=== PATIENT | male | born 1970 ===

== ENCOUNTER 2016-11-03 14:25 | Emergency (ER) | payer SELFPAY ==
[2016-11-03 14:32] VITALS: BMI 27.2
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
[2016-11-03 15:21] VITALS: TEMP 98.5
[2016-11-03 19:35] VITALS: BP 127/90; PULSE 79; RESP 17; O2SAT 97
== END 2016-11-03 19:35 | disposition home or self-care (01) ==
LOC: ED 14:25 → MERGE 14:25 → ED 19:35
DX: F10.10 Alcohol abuse, uncomplicated (principal); Y90.9 Presence of alcohol in blood, level not specified

== ENCOUNTER 2016-12-17 07:33 | Emergency (ER) | payer SELFPAY ==
[2016-12-17 07:43] VITALS: BMI 33.4
[2016-12-17 07:45] VITALS: RESP 18; TEMP 98.3
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
[2016-12-17 11:03] VITALS: BP 113/75; PULSE 84; O2SAT 99
== END 2016-12-17 11:08 | disposition home or self-care (01) ==
LOC: EDBD 07:33 → MERGE 07:33 → ED 07:33
DX: F10.129 Alcohol abuse with intoxication, unspecified (principal)

== ENCOUNTER 2017-03-18 21:38 | Emergency (ER) | payer MEDICAID, OTHER ==
[2017-03-18 21:40] VITALS: BMI 30.4
[2017-03-18 21:46] VITALS: RESP 18; TEMP 99; O2SAT 95
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
--- NOTE | 2017-03-18 23:23 | CT ---
EXAM: CT Orbits Without Intravenous Contrast EXAM DATE/TIME: 03/18/2017 9:48 PM CLINICAL HISTORY: The patient age is 46 years old and is male; Injury or trauma; Fall; Initial encounter; Abrasion; Forehead and nose; Injury date: 03-18-2017; Additional info: R/O FX Facility exam id and description: Ct orbit orbits/ facials w/o contrast TECHNIQUE: Axial computed tomography images of the orbits without intravenous contrast. All CT scans at this facility use one or more dose reduction techniques, viz.: automated exposure control; ma/kV adjustment per patient size (including targeted exams where dose is matched to indication; i.e. head); or iterative reconstruction technique. Coronal and sagittal reformatted images were created and reviewed. COMPARISON: CT - MAXILLOFACIAL W/O CONTRAST 04/16/2016 12:06:24 PM FINDINGS: Orbits: There is mild dilatation of the bilateral superior ophthalmic veins. This finding is nonspecific. This measures 6 mm in diameter on the left side. Differential considerations include idiopathic dilatation, Graves' disease, increasing intracranial pressure, and cavernous sinus pathology. Sinuses: Mucous retention cysts or polyps are visualized within the bilateral maxillary sinuses. No air-fluid levels within the paranasal sinuses. Bones/joints: There is a subtle fracture of the left anterior nasal bone. There is mild soft tissue swelling overlying the nasal bones. The remaining visualized facial bones/orbits are intact. Soft tissues: There is mild soft tissue swelling anterior to the maxilla involving the the patient's chin. IMPRESSION: 1. There is a subtle fracture of the left anterior nasal bone. There is mild soft tissue swelling overlying the nasal bones. 2. There is mild soft tissue swelling anterior to the maxilla involving the the patient's chin. 3. There is mild dilatation of the bilateral superior ophthalmic veins. This finding is nonspecific. Differential considerations include idiopathic dilatation, Graves' disease, increasing intracranial pressure, and cavernous sinus pathology. This is stable compared to the prior study.
--- NOTE | 2017-03-18 23:31 | CT ---
EXAM: CT Head Without Intravenous Contrast EXAM DATE/TIME: 03/18/2017 9:48 PM CLINICAL HISTORY: The patient age is 46 years old and is male; Injury or trauma; Fall; Initial encounter; Abrasion; Face and forehead; Additional info: R/O ich and FX Facility exam id and description: Ct heads head w/o contrast TECHNIQUE: Axial computed tomography images of the head/brain without intravenous contrast. All CT scans at this facility use one or more dose reduction techniques, viz.: automated exposure control; ma/kV adjustment per patient size (including targeted exams where dose is matched to indication; i.e. head); or iterative reconstruction technique. COMPARISON: CT - HEAD W/O CONTRAST 05/25/2016 6:44:14 PM FINDINGS: Brain: The white-delgado differentiation is preserved demonstrating no acute territorial type infarct. No acute intracranial hemorrhage is seen. No edema. Midline shift: There is no midline shift. Ventricles: No ventriculomegaly. Bones/joints: For description of findings involving the facial bones, orbits, and paranasal sinuses, refer to the orbit CT from the same day. The calvarium demonstrates no evidence for a depressed fracture. Soft tissues: No acute abnormality. Vasculature: There is atherosclerotic calcification of the cavernous internal carotid arteries. Sinuses: See above. Mastoid air cells: No mastoid effusion. IMPRESSION: 1. No acute intracranial abnormality.
[2017-03-19 02:25] VITALS: BP 109/68; PULSE 90
== END 2017-03-19 04:00 | disposition home or self-care (01) ==
LOC: ED 21:38
DX: F10.129 Alcohol abuse with intoxication, unspecified (principal)

== ENCOUNTER 2017-03-19 10:39 | Observation (INO) | payer MEDICAID, OTHER ==
[2017-03-19 10:39] VITALS: BMI 30.4
[2017-03-19 11:05] VITALS: TEMP 98.9
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
[2017-03-19 20:03] VITALS: BP 117/83; PULSE 78; RESP 18; O2SAT 98
== END 2017-03-19 19:55 | disposition home or self-care (01) ==
LOC: ED 10:39 → EROBSV 11:20
PROVIDERS: ADMIT Emergency Medicine
DX: F10.129 Alcohol abuse with intoxication, unspecified (principal)
CPT/HCPCS: 99284; G0378

== ENCOUNTER 2018-02-02 22:48 | Emergency (ER) | payer SELFPAY ==
[2018-02-02 22:49] VITALS: BMI 30.4
[2018-02-02 23:05] VITALS: TEMP 98.2
[2018-02-02] MEDS ORDERED: TDAP Vaccine 0.5 mL Syr IM ONE (23:14)
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
[2018-02-03 06:19] VITALS: BP 127/87; PULSE 84; RESP 16
[2018-02-03 06:20] VITALS: O2SAT 99
== END 2018-02-03 06:25 | disposition home or self-care (01) ==
LOC: ED 22:48
DX: T22.251A Burn of second degree of right shoulder, initial encounter (principal); X12.XXXA Contact with other hot fluids, initial encounter; Y92.000 Kitchen of unspecified non-institutional (private) residence as the place of occurrence of the external cause; F10.10 Alcohol abuse, uncomplicated; Y90.8 Blood alcohol level of 240 mg/100 ml or more; Z23 Encounter for immunization
CPT/HCPCS: 90471; 90715; 99284; G0480